=== PATIENT | male | born 1980 | race Caucasian/White ===

== ENCOUNTER 2018-03-30 01:57 | Emergency (ER) | payer SELFPAY ==
[2018-03-30 02:08] VITALS: BP 144/98
--- NOTE | 2018-03-30 02:42 | EDM.PDOC ---
ED HPI GENERAL MEDICAL PROBLEM - General Chief Complaint: Lower Extremity Injury/Pain Stated Complaint: RIGHT FOOT PAIN AND SWOLLEN RIGHT HAND LACERATION Time Seen by Provider: 03/30/18 02:35 - History of Present Illness INITIAL COMMENTS - FREE TEXT/NARRATIVE: 37-year-old male presents emergency room with a couple of injuries. First injury is his right ankle and foot he kicked a ball about a week ago and came down on it funny he's had pain on the top of his foot. He's also had some discomfort along the lateral aspect of his ankle this injury is 7-9 days old. Patient 3 days ago was working on a [email or web address] fence was swinging a hammer and caught his hand on something on his right middle ray at the metacarpophalangeal joint he lacerated the skin on the dorsum of the hand this is no longer bleeding but he is wondering what can be done with it it is a little sore. Right Ankle Pain Score (Numeric/FACES): 6 - Related Data Allergies Allergy/AdvReac Type Severity Reaction Status Date / Time No Known Allergies Allergy Verified 03/30/18 02:04 Home Meds: Home Meds Doxycycline [Vibramycin] 100 mg IV Q12H #20 vial 03/30/18 [Rx] Past Medical History - Past Health History Medical/Surgical History: Denies Medical/Surgical History Musculoskeletal History: Reports: Fracture Other Musculoskeletal History: left elbow with pins and wires;broke the socket Psychiatric History: Reports: Addiction Other Psychiatric History: Past drug addiction Social & Family History - Tobacco Use Smoking Status *Q: Current Every Day Smoker Years of Tobacco use: 20 Packs/Tins Daily: 1 - Recreational Drug Use Recreational Drug Use: Yes Drug Use in Last 12 Months: No Recreational Drug Type: Reports: Methamphetamine, Oxycodone Recreational Drug Use Frequency: Not Used In Over 6 Months Review of Systems - Review of Systems Review Of Systems: See Below Constitutional: Reports: No Symptoms Respiratory: Reports: No Symptoms Cardiovascular: Reports: No Symptoms GI/Abdominal: Reports: No Symptoms ED EXAM, GENERAL - Physical Exam Exam: See Below Exam Limited By: No Limitations General Appearance: Alert, No Apparent Distress Respiratory/Chest: No Respiratory Distress, Lungs Clear, Normal Breath Sounds Cardiovascular: Regular Rate, Rhythm, No Edema, No Murmur Extremities: Other (Examination of his right hand shows a 1.5 cm laceration curvilinear over the top of the metacarpal phalangeal joint it is well healed in no active bleeding at this time the patient has full flexion without opening this. Examination of his foot shows some swelling over the dorsum of his foot he has some discomfort over the anterior lateral medial malleolus, over what would be the anterior talofibular ligament, no pain over the base of fifth metatarsal no pain with palpation of the fibula full-length no tibial pain noted neurovascular status of the foot appears to be intact tendon function normal) Course - Vital Signs Last Recorded V/S: Last Vital Signs Temp 36.9 C 03/30/18 02:04 Pulse 95 03/30/18 02:04 Resp 16 03/30/18 02:04 BP 144/98 H 03/30/18 02:04 Pulse Ox 98 03/30/18 02:04 - Orders/Labs/Meds Orders: Active Orders 24 hr Category Date Time Status Ankle Min 3V Rt [CR] Stat Exams 03/30/18 02:47 Taken Foot Comp Min 3V Rt [CR] Stat Exams 03/30/18 02:47 Taken - Re-Assessments/Exams Free Text/Narrative Re-Assessment/Exam: 03/30/18 02:53 X-rays are nondiagnostic no acute fracture dislocation patient will be discharged with doxycycline for his hand patient is concerned about getting shoe gear and splinting material into his work boots this far out a mattress to help much anyway so he will not be splinted Repair of his hand laceration would not be prudent at this point he does have some redness in the area and significant swelling we'll start him on doxycycline Departure - Departure Time of Disposition: 04:08 Disposition: Home, Self-Care 01 Clinical Impression: Foot pain, right, Laceration of hand with delay in treatment, Mild ankle sprain - Discharge Information Prescriptions: Doxycycline [Vibramycin] 100 mg IV Q12H #20 vial Referrals: PCP,None [Primary Care Provider] - Forms: ED Department Discharge Additional Instructions: Return to the emergency room with any questions or problems. [facility] this week for recheck. Ibuprofen for discomfort take the antibiotics as directed - My Orders Last 24 Hours: My Active Orders 03/30/18 02:47 Ankle Min 3V Rt [CR] Stat Foot Comp Min 3V Rt [CR] Stat - Assessment/Plan Last 24 Hours: My Active Orders 03/30/18 02:47 Ankle Min 3V Rt [CR] Stat Foot Comp Min 3V Rt [CR] Stat
--- NOTE | 2018-03-30 15:48 | CR ---
Right ankle: Four views of the right ankle were obtained. Comparison: No prior ankle exam. Ankle mortise is symmetric. No fracture, dislocation or other bony abnormality is seen. Impression: 1. No abnormality is identified on right ankle exam. Diagnostic code #1
--- NOTE | 2018-03-30 15:48 | CR ---
Right foot: Four views of the right foot were obtained. Comparison: No prior foot exam. Joint space narrowing and mild osteophytes are noted within the first MTP joint. Other joint spaces are preserved. Mild soft tissue swelling is noted. Small calcification is noted on the lateral view off the distal first metatarsal which is felt to be dystrophic and incidental. No acute fracture or other bony abnormality is identified. Impression: 1. Mild soft tissue swelling. 2. Mild degenerative change within the first MTP joint. 3. Nothing acute is appreciated on right foot exam. Diagnostic code #2
== END 2018-03-30 04:25 | disposition home or self-care (01) ==
LOC: JD.ED 01:57
DX: S93.401A Sprain of unspecified ligament of right ankle, initial encounter (principal); M79.671 Pain in right foot; F17.210 Nicotine dependence, cigarettes, uncomplicated; W21.00XA Struck by hit or thrown ball, unspecified type, initial encounter
CPT/HCPCS: 73610-26-RT; 73610-RT; 73630-26-RT; 73630-RT; 99283

== ENCOUNTER 2018-06-01 15:41 | Emergency (ER) | payer OTHER ==
[2018-06-01 16:13] VITALS: BP 156/107
[2018-06-01] MEDS ORDERED: Sodium Chloride 0.9% 1,000 ML IV ONE (18:52)
[2018-06-01] MEDS ORDERED: cefTRIAXone 2 GM in Sodium Chloride 0.9% 100 ML IV ONE (18:53)
[2018-06-01] MEDS ORDERED: Ketorolac 30 MG/ML SDV IVPUSH ONE (18:53)
[2018-06-01] MEDS ORDERED: Sodium Chloride 0.9% 10 ML Syringe FLUSH PRN (18:54)
--- NOTE | 2018-06-01 19:42 | EDM.PDOC ---
ED HPI GENERAL MEDICAL PROBLEM - General Chief Complaint: Skin Complaint Stated Complaint: REDNESS AND SWELLING ON LEG Time Seen by Provider: 06/01/18 18:42 Source of Information: Reports: Patient, Old Records (recent ED records) History Limitations: Reports: No Limitations - History of Present Illness INITIAL COMMENTS - FREE TEXT/NARRATIVE: 38-year-old male presents for evaluation and treatment of erythema, pain and swelling to the left leg. Patient was seen in the ED on May 30. Given a dose of IV clindamycin. Review the records show that he eloped prior to discharge and was not sent home with any antibiotics. He presented to the walk- in clinic today where the area of erythema had greatly increased from the previous marking; sent to us for IV antibiotics. It he now has swelling to his foot and left lower leg. He has erythema from the left ankle to the left knee. He reports associated symptoms of chills and nausea. No fevers or vomiting. He reports that the foot feels numb and tingly. Patient thought the initial injury was possibly from a spider bite. Unclear exactly what caused the initial injury. Reports initially he had purulent drainage but this has since subsided. Patient denies any history of MRSA. No history of diabetes. Duration: Getting Worse Location: Reports: Lower Extremity, Left left leg Pain Score (Numeric/FACES): 5 - Related Data Allergies Allergy/AdvReac Type Severity Reaction Status Date / Time No Known Allergies Allergy Verified 06/01/18 16:13 Home Meds: Home Meds Clindamycin HCl [Cleocin HCl] 300 mg PO Q6HR #40 capsule 06/01/18 [Rx] Past Medical History - Past Health History Medical/Surgical History: Denies Medical/Surgical History Musculoskeletal History: Reports: Fracture Other Musculoskeletal History: left elbow with pins and wires;broke the socket Psychiatric History: Reports: Addiction Other Psychiatric History: Past drug addiction Social & Family History - Family History Family Medical History: Noncontributory - Tobacco Use Smoking Status *Q: Current Every Day Smoker Years of Tobacco use: 20 Packs/Tins Daily: 1 - Caffeine Use Caffeine Use: Reports: Energy Drinks Other Caffeine Use: Daily - Recreational Drug Use Recreational Drug Use: Yes Drug Use in Last 12 Months: Yes Recreational Drug Type: Reports: Methamphetamine ED ROS GENERAL - Review of Systems Review Of Systems: See Below Constitutional: Reports: Chills, Malaise. Denies: Fever GI/Abdominal: Reports: Nausea. Denies: Vomiting Musculoskeletal: Reports: Leg Pain (Left lower leg) Skin: Reports: Erythema (left lower leg), Wound (left lower leg) Neurological: Reports: Numbness (Left lower leg), Tingling (Left lower leg) ED EXAM, SKIN/RASH Exam: See Below Exam Limited By: No Limitations General Appearance: Alert, WD/WN, No Apparent Distress Throat/Mouth: Normal Inspection, Normal Voice, No Airway Compromise Respiratory/Chest: No Respiratory Distress, Lungs Clear, Normal Breath Sounds Cardiovascular: Normal Peripheral Pulses, Regular Rate, Rhythm, No Murmur Peripheral Pulses: 2+: Posterior Tibial (L), Posterior Tibial (R), Dorsalis Pedis (L), Dorsalis Pedis (R) Extremities: Other (erythemat extend from the knee to the left ankle; swelling to the left foot; small wound to the left mid lateral lower leg ) Neurological: Alert, Oriented, Normal Cognition Psychiatric: Normal Affect, Normal Mood Skin: Warm, Dry, Erythema (left lower leg), Increased Warmth (left lower leg), Wound/Incision (left lateral leg) Location, Skin: Lower Extremity, Left Associated features: Warmth, Tenderness, Swelling. No: Weeping Course - Vital Signs Last Recorded V/S: Last Vital Signs Temp 98.5 F 06/01/18 16:09 Pulse 89 06/01/18 16:09 Resp 12 06/01/18 16:09 BP 156/107 H 06/01/18 16:09 Pulse Ox 100 06/01/18 16:09 - Orders/Labs/Meds Labs: Laboratory Tests 06/01/18 06/01/18 06/01/18 Range/Units 16:00 16:20 19:11 WBC 6.73 (4.23-9.07) K/mm3 RBC 4.62 L (4.63-6.08) M/mm3 Hgb 14.0 (13.7-17.5) gm/L Hct 41.2 (40.1-51.0) % MCV 89.2 (79.0-92.2) fl MCH 30.3 (25.7-32.2) pg MCHC 34.0 (32.2-35.5) g/dl RDW Std Deviation 45.7 H (35.1-43.9) fL Plt Count 263 (163-337) K/mm3 MPV 10.1 (9.4-12.3) fl Neutrophils % (Manual) 58 (40-60) % Band Neutrophils % 0 (0-10) % Lymphocytes % (Manual) 29 (20-40) % Atypical Lymphs % 0 % Monocytes % (Manual) 12 H (2-10) % Eosinophils % (Manual) 0 L (0.8-7.0) % Basophils % (Manual) 1 (0.2-1.2) Platelet Estimate Adequate Plt Morphology Comment Normal RBC Morph Comment Normal Sodium 137 (136-145) mEq/L Potassium 4.5 (3.5-5.1) mEq/L Chloride 102 (98-107) mEq/L Carbon Dioxide 28 (21-32) mEq/L Anion Gap 11.5 (5-15) BUN 14 (7-18) mg/dL Creatinine 1.0 (0.7-1.3) mg/dL Est Cr Clr Drug Dosing 118.73 mL/min Estimated GFR (MDRD) > 60 (>60) mL/min BUN/Creatinine Ratio 14.0 (14-18) Glucose 104 (74-106) mg/dL Lactic Acid 1.0 (0.4-2.0) mmol/L Calcium 9.6 (8.5-10.1) mg/dL Total Bilirubin 0.6 (0.2-1.0) mg/dL AST 79 H (15-37) U/L ALT 114 H (16-63) U/L Alkaline Phosphatase 94 (46-116) U/L C-Reactive Protein 7.9 H* (<1.0) mg/dL Total Protein 7.9 (6.4-8.2) g/dl Albumin 3.7 (3.4-5.0) g/dl Globulin 4.2 gm/dL Albumin/Globulin Ratio 0.9 L (1-2) Meds: Medications Discontinued Medications Generic Name Dose Route Start Last Admin Trade Name Freq PRN Reason Stop Dose Admin Clindamycin HCl 300 mg 06/01/18 21:44 06/01/18 21:53 Cleocin PO 06/01/18 21:45 300 mg ONETIME ONE Administration Ceftriaxone Sodium 2 gm/ 100 mls @ 100 mls/hr 06/01/18 18:53 06/01/18 19:31 Sodium Chloride IV 06/01/18 19:52 100 mls/hr ONETIME ONE Administration Sodium Chloride 1,000 mls @ 999 mls/hr 06/01/18 18:52 06/01/18 19:35 Normal Saline IV 06/01/18 19:52 400 mls/hr ONETIME ONE Infusion Ketorolac Tromethamine 30 mg 06/01/18 18:53 06/01/18 19:29 Toradol IVPUSH 06/01/18 18:54 30 mg ONETIME ONE Administration Sodium Chloride 10 ml 06/01/18 18:54 06/01/18 20:31 Saline Flush FLUSH 10 ml ASDIRECTED PRN Administration Keep Vein Open - Re-Assessments/Exams Free Text/Narrative Re-Assessment/Exam: 06/01/18 21:45 Reviewed the labs patient. Offered observation admission as the cellulitis is more extensive, however, he did not technically the fail outpatient treatment as he eloped prior to antibiotics during his last ED visit. Plan we will start him on clindamycin and have him follow-up in the clinic on Friday or of this week. He is to return to the ER for symptoms change or worsen. Discharge instructions as documented. Departure - Departure Time of Disposition: 21:46 Disposition: Home, Self-Care 01 Condition: Fair Clinical Impression: Cellulitis Qualifiers: Site of cellulitis: extremity Site of cellulitis of extremity: lower extremity Laterality: left Qualified Code(s): L03.116 - Cellulitis of left lower limb - Discharge Information *PRESCRIPTION DRUG MONITORING PROGRAM REVIEWED*: No *COPY OF PRESCRIPTION DRUG MONITORING REPORT IN PATIENT TAMRA: No Prescriptions: Clindamycin HCl [Cleocin HCl] 300 mg PO Q6HR #40 capsule Instructions: Cellulitis, Adult Referrals: PCP,None [Primary Care Provider] - Ivone Alvares, [employer] [Nurse Practitioner] - Forms: ED Department Discharge, ED Return to Work/School Form Additional Instructions: Take the clindamycin as prescribed. One Every 6 hours for 10 days. Take this antibiotic with food. Recommend yogurt or a probiotic to reduce side effects of upset stomach. [id number] Tylenol or Motrin as needed for pain relief. Elevate the leg as much as possible. May ice for additional swelling and pain relief. Follow-up in the clinic on Friday or of this week. Recommend Ivone Alvares or Micki Wilkerson at the [facility]. Call [phone] to schedule with one of these providers. please return the ER if your symptoms change or worsen.
[2018-06-01] MEDS ORDERED: Clindamycin HCl 150 MG Cap PO ONE (21:44)
== END 2018-06-01 22:03 | disposition home or self-care (01) ==
LOC: JD.ED 15:41
DX: L03.116 Cellulitis of left lower limb (principal); F17.210 Nicotine dependence, cigarettes, uncomplicated
CPT/HCPCS: 36415; 80053; 83605; 85007; 85027; 86140; 87040; 96361; 96365; 96375; 99284; A9270; J0696; J1885; J7030; J7040; J7050